=== PATIENT | female | born 1985 | race Caucasian/White ===

== ENCOUNTER → 2019-10-04 15:45 | Outpatient (BNVA) | payer OTHER, SELFPAY | PROVIDERS: Family Provider Electrodiagnostic Medicine; PCP Electrodiagnostic Medicine; Visit Provider Obstetrics & Gynecology | DX: N92.0 Excessive and frequent menstruation with regular cycle (principal) | CPT/HCPCS: 85027 ==

== ENCOUNTER → 2020-01-10 09:45 | Outpatient (BNVA) | payer OTHER, SELFPAY | PROVIDERS: Family Provider Electrodiagnostic Medicine; PCP Electrodiagnostic Medicine; Visit Provider Obstetrics & Gynecology | DX: N92.0 Excessive and frequent menstruation with regular cycle (principal) | CPT/HCPCS: 84443 ==

== ENCOUNTER → 2020-01-17 13:04 | Outpatient (BNVA) | payer OTHER, SELFPAY | PROVIDERS: Family Provider Electrodiagnostic Medicine; PCP Electrodiagnostic Medicine; Referring Provider Obstetrics & Gynecology; Visit Provider Obstetrics & Gynecology | DX: N92.0 Excessive and frequent menstruation with regular cycle (principal) | CPT/HCPCS: 76830 ==

== ENCOUNTER → 2020-02-13 13:01 | Outpatient (BNVA) | payer OTHER, SELFPAY | PROVIDERS: Family Provider Electrodiagnostic Medicine; PCP Electrodiagnostic Medicine; Visit Provider Obstetrics & Gynecology | DX: Z01.812 Encounter for preprocedural laboratory examination (principal) | CPT/HCPCS: 81025 ==

== ENCOUNTER 2020-03-04 07:58 | Day surgery (SDC) | payer OTHER, SELFPAY ==
[2020-03-03 14:21] VITALS: BMI 38.2
--- NOTE | 2020-03-03 14:30 | ANES.PREANE2 ---
Pre-Anesthetic Assessment Pre-Anesthetic Assessment: Height/Weight: Height 1.65 m Weight 104.326 kg Preop Diagnosis: Menorrhagia Proposed Procedure: Operation Date: 03/04/20 09:30 Proposed Procedures p Dilation And Curettage (D&C)/18537 N84.0 N92.0(Not Applicable) - Ej Betancourt MD Familial anesthetic complications: PONV during her spinal () Social: Social History: No alcohol and No tobacco Exam: Pre-Anes Outpt Exam: alert, oriented x 3, clear to auscultation bilaterally and regular rate & rhythm Airway: Cervical ROM: WNL MP: 1 Dentition: Full Neuropsych: Comments: glaucoma Anesthetic Plan: ASA status: 1 Anesthesia: MAC Risk of > 500 ml blood loss (7ml/kg in children): No PFSH Anesthesia PFSH: Medical History Cystic fibrosis screening (07/18/12) Screen negative. Menorrhagia with regular cycle 06/29/2018: Reported slowly worsening bleeding. No significant findings on exam. Treatment options discussed and patient wished to try high-dose cyclic NSAIDs. Laboratory testing ordered. -H&H 11.9/36.2, MCV 84.2, TSH 1.89 Surgical History History of breast augmentation (12/2007) bilateral augmentation with reshaping of breast S/P section (04/26/16) With tubal ligation. Indications: Twin gestation and severe preeclampsia. Performed by Dr. Segovia at [facility] and [place], [place]. S/P cholecystectomy (2013) Laparoscoic S/P dilation and curettage (01/11/12) Miscarriage treatment. Performed by Dr. Betancourt at [facility] in [place], [place] S/P scar revision (~12/2008) of previous breast surgery S/P tubal ligation (04/26/16) Performed at time of section. Performed by Dr. Segovia at [facility] and [place], [place]. Family History Father Heart disease Stroke TIA Grandmother Breast cancer maternal Social History Smoking and tobacco status: never smoked Alcohol intake: never Other details last substance use: Denies drug use. Female Reproductive History: Date of last menstrual period: 02/20/20 Data Anesthesia Cardiac Studies: No Data to Display
[2020-03-03 14:34] LABS: OR HCG Qualitative Urine Negative (Negative)
[2020-03-04 08:09] VITALS: BP 180/96; PULSE 98; RESP 16; TEMP 37.1; O2SAT 96
[2020-03-04] MEDS: ketorolac 30 mg/mL INJ IVP (08:29)
[2020-03-04] MEDS: sodium chloride 0.9% 1,000 ML 30 ML IV (08:29)
--- NOTE | 2020-03-04 08:32 | W.PM.OPSUD ---
Surgery/Procedure H&P Update DATE OF PROCEDURE: March 04, 2020 DATE H&P PERFORMED: 02/13/20 H&P UPDATE INFORMATION: I have reviewed H&P completed within last 30 days, I have examined patient prior to procedure, No changes to prior documentation and H&P is in [facility] EMR on date indicated PREOP DIAGNOSIS: Menorrhagia, Endometrial polyp PLANNED PROCEDURE: Operation Date: 03/04/20 09:30 Proposed Procedures p Dilation And Curettage (D&C)/01697 N84.0 N92.0(Not Applicable) - Ej Betancourt MD
--- NOTE | 2020-03-04 09:25 | PM.OP ---
Operative Report Date of procedure: March 04, 2020 Pre-op Diagnosis: Menorrhagia, Endometrial polyp Post-op Diagnosis: Menorrhagia, Endometrial polyp Procedure Done: Dilation and curettage, Paracervical block Specimens removed/disposition: Endometrial curettings Surgeon: Ej Betancourt Field Logistics Coordinator: None Anesthesia: MAC and Other (Paracervical block) Estimated blood loss (mL): 10 IV fluids (mL): 300 Complications: None Findings: First to second-degree uterine prolapse. Brief History: Patient is a 34-year-old white female 5, para 1-2-2-4 who is status post tubal ligation. She had presented to the office due to irregular bleeding that developed after stopping control pills following having a sterilization. She typically will bleed 8 to 9 days at a time with 4 days being heavy. She changes a pad and tampon every 1-1/2 hours and they were thoroughly soaked at those times. She reports clots the size of the palm of her hand at times. She had an ultrasound performed which showed hypoechoic area at the anterior portion of the uterus. Hysteroscopy was performed in the office which showed a sessile polyp. She is now presenting for D&C for removal of the polyp. Procedure: The patient was taken to the operating room where IV sedation was started. She was prepped and draped in the usual sterile fashion in the dorsal supine position with legs in Paul style stirrups. Sequential compression boots had been placed prior to starting the case. Patient had voided just before coming to the operating room. Exam under anesthesia was performed and the patient was noted to have first to second-degree uterine prolapse. A weighted speculum was placed in the vagina and the cervix was grasped with a single-tooth tenaculum. A paracervical block was performed with a total of 12 mL of 2% lidocaine with epinephrine used. The cervix was serially dilated. Endometrial cavity was then curetted with a large amount of tissue obtained. This was continued until there was a gritty texture throughout the endometrial cavity. The tenaculum was removed and there was minimal bleeding from the tenaculum site. Patient tolerated the procedure well. Sponge and needle counts were correct. DRAINS: None POSTOPERATIVE STATUS: The patient was transferred to the recovery room in satisfactory condition DISPOSITION: Discharge to home when criteria was met. FOLLOWUP APPOINTMENT: Followup appointment in approximately 2 weeks in my office. MEDICATIONS: Planning to use [id number] ibuprofen and Tylenol for pain.
[2020-03-04 09:31] VITALS: BP 144/88; PULSE 112; RESP 18; TEMP 36.1; O2SAT 96
[2020-03-04 09:46] VITALS: BP 128/96; PULSE 98; RESP 18; TEMP 36.6; O2SAT 97
== END 2020-03-04 10:30 | disposition home or self-care (01) ==
PROVIDERS: PCP Electrodiagnostic Medicine; Visit Provider Obstetrics & Gynecology
PROC: (CPT 58120; principal; 2020-03-04 09:20)
DX: N92.0 Excessive and frequent menstruation with regular cycle (principal); N84.0 Polyp of corpus uteri; N81.2 Incomplete uterovaginal prolapse
CPT/HCPCS: 58120; 12345; 81025; 84703; 88305; 96374; J1885; J2704; J3010; J7030

== ENCOUNTER → 2020-03-05 15:52 | Outpatient (BNVA) | payer OTHER, SELFPAY | PROVIDERS: PCP Electrodiagnostic Medicine; Visit Provider Nurse Practitioner | DX: R05 Cough (principal); J20.9 Acute bronchitis, unspecified; J21.9 Acute bronchiolitis, unspecified; J18.9 Pneumonia, unspecified organism; Z68.41 Body mass index [BMI] 40.0-44.9, adult | CPT/HCPCS: 71046; 87635 ==